=== PATIENT | female | born 2000 | race Asian ===

== ENCOUNTER 2021-08-11 04:34 | Emergency (ER) | payer BC, SELFPAY ==
--- NOTE | ~2021-08-11 | CT_ITS ---
EXAMINATION: CT HEAD WITHOUT CONTRAST CT CERVICAL SPINE WITHOUT CONTRAST CLINICAL INFORMATION: Fall. Head trauma. COMPARISON: None TECHNIQUE: Contiguous axial imaging was performed from the skull base to vertex without intravenous administration of contrast. Contiguous axial CT images of the cervical spine were obtained without contrast. Sagittal and coronal reformats were provided and reviewed. This CT examination was performed using dose optimization techniques as appropriate, variously including the following: Automated exposure control. Adjustment of mA and/or kV according to patient size (this includes techniques or standardized protocols for targeted exams where dose is matched to indication/reason for exam; i.e. extremities or head). Use of iterative reconstruction technique. DLP: 1140 mGy-cm FINDINGS: HEAD: There is no evidence of acute intracranial hemorrhage or territorial infarction. No abnormal mass effect or midline shift is seen. Lorenzo to white matter differentiation is well preserved. No extra-axial fluid collections are identified. The ventricles are normal in size. There is no abnormal attenuation within the brain parenchyma. The osseous structures and soft tissues are normal. The mastoid air cells and visualized portions of the paranasal sinuses are well aerated. CERVICAL SPINE: Mild reversal of the normal cervical lordosis, likely positional. No acute fracture or subluxation. No loss of vertebral body or intervertebral disc height. Unremarkable facet joints. No lytic or blastic osseous lesion. Unremarkable prevertebral soft tissues. No abnormal soft tissue mass or fluid collection. Thyroid within normal limits. Visualized lung apices are clear. No significant central canal or neural foraminal stenosis. CT/CT cervical spine wo con IMPRESSION: HEAD: No acute intracranial hemorrhage or mass effect. CERVICAL SPINE: No acute fracture or subluxation.
[2021-08-11 04:41] VITALS: BP 118/53; PULSE 115; O2SAT 99
[2021-08-11 04:43] VITALS: BP 91/48; PULSE 91; RESP 23; TEMP 36.8; O2SAT 99; BMI 23.8
--- NOTE | 2021-08-11 04:47 | ED_ITS ---
HPI - Alcohol General Chief Complaint: ETOH/Substance Use Stated Complaint: etoh Time Seen by Provider: 08/11/21 04:44 Source: patient Mode of arrival: EMS History of Present Illness HPI narrative: 21-year-old female brought in from [facility] after EMS was called for patient being intoxicated. She is vomited once and otherwise denies any acute complaints Related Data Allergies Allergy/AdvReac Type Severity Reaction Status Date / Time No Known Allergies Allergy Verified 08/11/21 04:44 Review of Systems Review of Systems: Pertinent positives and negatives as stated in HPI 10 point review of systems is otherwise negative. PMFSH Past Medical History Source: nursing notes reviewed Medical History No known health problems Surgical History No history of previous surgery Social History Social History Patient : No Physical Exam ED Vital Signs: Vital Signs - 24 hr 08/11/21 04:43 Temperature 98.2 F Pulse Rate 91 Respiratory Rate 23 H Blood Pressure 91/48 L Pulse Oximetry 99 BMI result Body Mass Index 23.8 VITAL SIGNS: Reviewed. GENERAL: Well developed, well nourished, anxious. HEAD: Normocephalic/atraumatic EYES: PERRLA, EOMI OROPHARYNX: no oral lesions noted, posterior pharynx clear and non-erythematous without noted tonsillar enlargement/erythema/exudates NECK: Supple, no adenopathy LUNGS: Normal breath sounds. Patient hyperventilating, but no wheeze/rhonchi/rales. SpO2<99> CARDIOVASCULAR: Regular rate and rhythm without noted murmurs ABDOMEN: Soft, non-tender, non-distended with bowel sounds. NEUROLOGIC: Alert and oriented x 3. Strength and sensation to light touch were grossly intact x 4. Course Course Course Narrative: 21-year-old female with history and clinical presentation consistent intoxication. Patient received fluids and antiemetics. Review of all investigations otherwise negative for acute findings other than BAL-146. Patient will continue to be observed until sober. Reevaluation(s) Reevaluation #1: Patient placed in physician observation because the patient needed more time to become sober from her alcohol. At the time observation was started the patient's vital signs were stable, patient is easily arousable and oriented, neuro: Nonfocal, CV RRR, lungs clear Time: 06:19 MDM - Alcohol Lab Data Result diagrams: 08/11/21 04:50 08/11/21 04:50 Labs: Lab Results 08/11/21 08/11/21 08/11/21 Range/Units 04:50 04:50 04:50 WBC 6.1 (4.8-10.8) X10*3/uL RBC 3.90 L (4.20-5.50) X10*6/uL Hgb 12.0 (12.0-16.0) g/dl Hct 35.8 L (37.0-47.0) % MCV 91.8 (80.0-98.0) fL MCH 30.8 (27.0-33.0) pg MCHC 33.5 (31.0-35.0) g/dl RDW 12.7 (11.0-16.0) % Plt Count 339 (160-400) X10*3/uL MPV 9.5 (9.4-12.3) fL Immature Gran % (Auto) 0.2 (0.0-0.4) % Neut % (Auto) 46.6 (45-73) % Lymph % (Auto) 40.8 H (20-40) % [place] % (Auto) 7.8 (2-11) % Eos % (Auto) 4.1 H (0-4) % Baso % (Auto) 0.5 (0-2) % Lymph # (Auto) 2.5 (1.2-4.9) X10*3/uL [place] # (Auto) 0.5 (0.1-1.2) X10*3/uL Eos # (Auto) 0.3 (0.0-0.4) X10*3/uL Baso # (Auto) 0.0 (0.0-0.2) X10*3/uL Abs Immat Gran (auto) 0.01 (0.00-0.03) X10*3/uL Absolute Neuts (auto) 2.8 (2.0-8.3) x10*3/uL Absolute Nucleated RBC 0.000 (0.0-0.012) X10*3/uL Nucleated RBC % (auto) 0.0 (0.0-0.2) /100WBC Sodium 144 (135-145) mmol/L Potassium 3.3 (3.3-5.1) mmol/L Chloride 113 H (96-108) mmol/L Carbon Dioxide 20 L (22-29) mmol/L Anion Gap 14 (12-20) BUN 5 L (9-16) mg/dL Creatinine 0.63 (0.5-1.4) mg/dL Estim Creat Clear Calc 112.6 Estimated GFR > 60 Random Glucose 115 (60-115) mg/dL Calcium 9.0 (8.4-10.2) mg/dL Total Bilirubin 0.2 (0.0-1.0) mg/dL AST 24 (5-31) U/L ALT 19 (0-31) U/L Alkaline Phosphatase 39 (39-117) U/L Total Protein 6.9 (6.5-8.0) g/dL Albumin 4.1 (3.5-5.0) g/dL Beta HCG, Quant < 2 mIU/mL Ethyl Alcohol 146 mg/dL Discharge Plan Discharge Clinical Impression: Alcoholic intoxication Patient Disposition: Still a Patient Instructions: Alcohol Intoxication (ED)
[2021-08-11 04:55] LABS: Basophils Percent Auto 0.5 % (0-2); Eosinophils Absolute Auto 0.3 X10*3/uL (0.0-0.4); Eosinophils Percent Auto 4.1 % (0-4); Hematocrit 35.8 % (37.0-47.0); Imm Gran Abs Auto 0.01 X10*3/uL (0.00-0.03); Imm Gran Pct Auto 0.2 % (0.0-0.4); Lymphocytes Absolute Auto 2.5 X10*3/uL (1.2-4.9); Lymphocytes Percent Auto 40.8 % (20-40); MANUAL DIFF FLAG NO; Mean Corpuscular HGB Conc 33.5 g/dl (31.0-35.0); Mean Corpuscular Hemoglobin 30.8 pg (27.0-33.0); Mean Corpuscular Volume 91.8 fL (80.0-98.0); Mean Platelet Volume 9.5 fL (9.4-12.3); Monocytes Absolute Auto 0.5 X10*3/uL (0.1-1.2); Monocytes Percent Auto 7.8 % (2-11); Neutrophils Absolute Auto 2.8 x10*3/uL (2.0-8.3); Neutrophils Percent Auto 46.6 % (45-73); Platelet Count 339 X10*3/uL (160-400); Red Cell Distribution Width 12.7 % (11.0-16.0); White Blood Count 6.1 X10*3/uL (4.8-10.8)
[2021-08-11 05:12] LABS: Ethanol 146 mg/dL
--- NOTE | 2021-08-11 05:13 | PC.NURSE ---
Public Safety number [phone]. Pt is of age, due to privacy and hippa no patient information given. There is no emergent care at this time. Public Safety number will be available once pt awakens.
[2021-08-11 05:15] LABS: Alanine Aminotransferase 19 U/L (0-31); Albumin Level 4.1 g/dL (3.5-5.0); Alkaline Phosphatase 39 U/L (39-117); Anion Gap 14 (12-20); Aspartate Amino Transferase 24 U/L (5-31); Bilirubin Total 0.2 mg/dL (0.0-1.0); Blood Urea Nitrogen 5 mg/dL (9-16); Carbon Dioxide 20 mmol/L (22-29); Chloride 113 mmol/L (96-108); Creatinine Clr Calc Pharmacy 112.6; Estimated Glomerular Filt Rate > 60; Glucose Random 115 mg/dL (60-115); Potassium 3.3 mmol/L (3.3-5.1); Sodium 144 mmol/L (135-145); Total Protein 6.9 g/dL (6.5-8.0)
[2021-08-11 05:21] LABS: HCG Quantitative < 2 mIU/mL
--- NOTE | 2021-08-11 05:31 | PC.NURSE ---
Per pt this RN confirmed that no information be release in regards to her being here.
[2021-08-11] MEDS: 0.9 % Sodium Chloride 1,000 ML 999 ML IV (05:37)
[2021-08-11] MEDS: ondansetron HCL 4 MG/2 ML VIAL IVPUSH (05:37)
--- NOTE | 2021-08-11 07:10 | PC.NURSE ---
pt is a/o x 3 no sob/ardd noted skin pink warm dry speaks in full sentences. dr. killian bedside pt aware of plan of care. pt states that she fell from standing prior to er visit.
[2021-08-11 07:15] VITALS: BP 82/37; PULSE 86; RESP 25; O2SAT 98
[2021-08-11] MEDS: 0.9 % Sodium Chloride 1,000 ML 999 ML IVCONT (07:19)
[2021-08-11 08:16] VITALS: BP 84/39; PULSE 84; RESP 17; O2SAT 99
[2021-08-11 09:10] VITALS: BP 94/57; PULSE 91; RESP 13; O2SAT 98
--- NOTE | 2021-08-11 09:15 | PC.NURSE ---
pt tolerate po challenge (water), amb (i) gait steady 50ft. aware.
== END 2021-08-11 09:39 | disposition home or self-care (01) ==
PROVIDERS: Student in an Organized Health Care Education/Training Program; Emergency Provider Emergency Medicine
DX: F10.129 Alcohol abuse with intoxication, unspecified (principal); M54.2 Cervicalgia; R51.9 Headache, unspecified; Y90.6 Blood alcohol level of 120-199 mg/100 ml
CPT/HCPCS: 36415; 70450; 72125; 80053; 82077; 84702; 85025; 96374; 96376; 99284; J2405